=== PATIENT | male | born 1980 | race Two or more races ===

== ENCOUNTER 2023-10-03 12:06 | Emergency (ER) | payer MEDICAID, SELFPAY ==
[2023-10-03 12:07] VITALS: BP 153/100; PULSE 98; RESP 18; TEMP 36; O2SAT 100; BMI 29.7
--- NOTE | 2023-10-03 12:28 | CT_ITS ---
STUDY: CT ABDOMEN AND PELVIS WITH CONTRAST REASON FOR EXAM: Male, 43 years old. Rectal pain -- IV PO Contrast RADIATION DOSAGE (If Supplied By Facility): CTDIvol = ( 17.08 ) mGy, DLP = ( 1160.06 ) mGycm TECHNIQUE: Oral and amp; IV Gastrografin and amp; 100mL Isovue-370 was administered. Transaxial images were obtained from the dome of the diaphragm to the symphysis pubis in the arterial, nephrographic and excretory phases. Multiplanar coronal and sagittal images were reformatted. Individualized Dose Optimization Techniques Were Used For This CT. COMPARISON: No relevant prior comparison study available FINDINGS: The visualized lung bases are unremarkable. The visualized portions of the heart are within normal limits. Normal liver. Normal gallbladder and extrahepatic biliary system. Normal spleen. Normal pancreas. Normal bilateral adrenal glands. Normal visualized stomach. Normal in caliber small bowel loops. No evidence of acute diverticulitis. The appendix is visualized and appears normal. Normal abdominal aorta. No retroperitoneal adenopathy. Normal right kidney. Normal left kidney. Normal urinary bladder. No pelvic mass. Normal abdominal wall. Normal osseous structures. CT/Abdomen/Pelvis WITH Contrast IMPRESSION: No focal acute inflammatory process. Electronically Signed: Juvenal Browning MD at 15:01 EDT ,
--- NOTE | 2023-10-03 12:29 | EX.ED.DYSGE1 ---
HPI History of Present Illness Chief Complaint: Other, Pain/Inj Detail of Chief Complaint: Rectal pain Informant: patient Onset/Context/Timing Onset: Weeks Narrative Narrative: Patient presents with 3-week history of rectal pain. He reports history of hemorrhoid surgery in the [facility] in 2016. He moved to the last year and has had a couple bouts of rectal pain that usually resolved with use of suppositories. About 3 weeks ago he developed rectal pain again. He was placed on hydrocortisone cream. He states his PCP did an exam and found a fissure. He is currently on a lidocaine cream but symptoms not improving and the pain was worse this morning so he presented to the emergency room. He states stool is soft and he is currently taking a laxative. He does not have a lot of pain with the bowel movement itself. No fever or chills. PFSH PFSH Medical History no medical history no medical history Home Medications Hydrocortisone 2.5%/lidocaine 5% suppository (cmpd) #10 ea 10/03/23 [Rx Last Taken Unknown] Allergy/AdvReac Type Severity Reaction Status Date / Time No Known Allergies Allergy Verified 10/03/23 12:06 Surgical History H/O hemorrhoidectomy H/O hernia repair Social History Smoking Status: Never smoker ROS ROS ED Constitutional Constitutional ED: Denies chills or fever(s) Eyes Eyes: Denies discharge from eye(s) ENT ENT ED: Denies discharge from eye(s), rhinorrhea or sore throat Cardiovascular Cardiovascular: Denies chest pain Respiratory/Chest Respiratory/Chest: Denies cough or dyspnea Gastrointestinal Gastrointestinal: Reports other Details: Rectal pain ; Denies abdominal pain, nausea or vomiting Genitourinary Genitourinary ED: Denies dysuria Musculoskeletal Musculoskeletal: Denies back pain or extremity pain Integumentary Denies Abrasions or rash Neurologic Neurologic: Denies headache(s) or weakness Psychiatric Psychiatric: Denies anxiety or depression Allergic/Immunologic Allergic/Immunologic ED: Denies lip swelling or urticaria EXAM Physical Exam Const Vital Signs: 10/03/23 12:07 10/03/23 13:06 Temperature 96.8 F L Temperature Source Temporal Pulse Rate 98 Respiratory Rate 18 Respiratory Effort Normal Respiratory Pattern Normal Blood Pressure 153/100 H Blood Pressure Mean 117 Pulse Ox 100 Oxygen Delivery Method Room Air Positive well nourished and well developed General Appearance ED: well developed HEENT Reports moist mucous membranes Eyes EOMs intact bilaterally Chest Wall inspection of chest normal and palpation of chest normal Resp normal respiratory effort and clear to auscultation bilaterally Cardio regular rate and regular rhythm GI non-tender Palpation: soft Extremity normal to inspection Neuro oriented x3 Psych mental status grossly normal Skin no rashes or lesions noted MDM MDM MDM Narrative Medical decision making narrative: IV line established. Patient given morphine and Zofran for pain. Labwork obtained to evaluate for leukocytosis, anemia, and electrolyte derangement. CT scan of the abdomen pelvis obtained to ensure no evidence of abscess or other acute abnormality causing his worsened symptoms. History & Record Review Discussion w/independent historian: Patient Lab Data Attestation: I reviewed the patient's lab results. Labs: Laboratory Results - last 24 hr 10/03/23 12:40 WBC 8.2 RBC 4.93 Hgb 14.6 Hct 43.1 MCV 87.4 MCH 29.6 MCHC 33.9 RDW Std Deviation 39.8 RDW Coeff of Reggie 12.5 Plt Count 210 MPV 9.5 Immature Gran % (Auto) 0.100 Neut % (Auto) 67.5 Lymph % (Auto) 27.0 [place] % (Auto) 5.0 Eos % (Auto) 0.2 Baso % (Auto) 0.2 Absolute Neuts (auto) 5.5 Absolute Lymphs (auto) 2.20 Nucleated RBC % 0 Sodium 139 Potassium 3.7 Chloride 105 Carbon Dioxide 27.0 Anion Gap 7 BUN 14 Creatinine 1.03 Estim Creat Clear Calc 105.30 Est GFR (MDRD) Af Amer 100 Est GFR (MDRD) Non-Af 83 BUN/Creatinine Ratio 13.6 Glucose 101 Calcium 9.5 Radiography Diagnostic Testing: Clinical Impression(s) from Imaging Studies Abdomen/Pelvis CT 10/03/23 12:28 IMPRESSION: No focal acute inflammatory process. Electronically Signed: Juvenal Browning MD at 15:01 EDT , Treatment and Re-Evaluation :: CBC was normal white count 8.2 with a hemoglobin of 14.6. Chemistry studies unremarkable. CT scan with p.o. and IV contrast reveals no focal acute inflammatory process. Test results are discussed with the patient. He states his primary care physician has done rectal exams in the office and found a fissure that is deep. He states he has so much pain that he was referred to surgery for an exam under anesthesia and is currently scheduled for colonoscopy on the which was to be done under anesthesia as well. Patient has reportedly done well with suppositories containing hydrocortisone and lidocaine in the past but is only been given creams with this round. I will write him a prescription for the suppositories as this may go deeper and get to the affected area better. I will also refer him to local surgery to see if he can be seen quicker. Patient is comfortable with this plan. I did encourage him to take ibuprofen regularly to help with inflammation and pain but advised that I did not want to write him narcotics as this would make him more constipated and worsen his overall problem. Discharge Plan Triage Chief Complaint: Other, Pain/Inj ED Provider: Maru Vizcarra Dx/Rx/DC Orders Clinical Impression: Pain in rectum, Fissure in ano Instructions: ED Understanding Anal Fissures, Taking a Sitz Bath Prescriptions: New (DME) Hydrocortisone 2.5%/lidocaine 5% suppository (cmpd) Suppository See Rx Instructions .Route Qty: 10 0RF Rx Instructions: 1 supp rectally TID prn rectal pain Primary Care Provider: Adolfo Rausch Referrals: Javan Kinsey MD [Med Staff - Active Staff] - As soon as possible NOT,DEFINED [Non-Staff] - Disposition Disposition: Home, Self Care
[2023-10-03 12:49] LABS: Absolute Neutrophil Count 5.5 X10^3/uL (2.0-7.7); Basophil# 0.02 X10^3/uL; Basophil% 0.2 % (0-1); Eosinophil# 0.02 X10^3/uL; Eosinophils% 0.2 % (0-5); Hematocrit 43.1 % (40-54); Hemoglobin 14.6 g/dL (13.0-16.5); Mean Corp Hgb Conc 33.9 g/dL (32-36); Mean Corpuscular Hgb 29.6 pg (27.0-32.0); Mean Corpuscular Volume 87.4 fL (80-94); Mean Platelet Vol. 9.5 fl (6.2-12.0); Monocyte# 0.41 X10^3/uL; NRBC Flagged by Analyzer 0 % (0-5); Neutrophil # 5.49 X10^3/uL (2.7-7.7); Neutrophil % 67.5 % (47-70); Platelet Count 210 K/mm3 (150-450); RBC Distribution Width CV 12.5 % (11.6-14.6); RBC Distribution Width SD 39.8 fl (35.1-43.9); Red Blood Count 4.93 M/mm3 (4.6-6.2); White Blood Count 8.2 K/mm3 (4.4-11.0)
[2023-10-03] MEDS: Morphine 4 MG/ML Syringe IV (12:49)
[2023-10-03] MEDS: Ondansetron 4 MG/2 ML Vial IV (12:49)
[2023-10-03] MEDS: 0.9% Normal Saline (1000mL) 1,000 ML 150 ML IV (12:51)
[2023-10-03 13:14] LABS: Anion Gap 7 (5-15); BUN 14 mg/dL (7-18); BUN/Creat Ratio 13.6 RATIO (10-20); Calcium,Total 9.5 mg/dL (8.5-10.1); Chloride 105 mmol/L (98-107); Creatinine, Serum 1.03 mg/dL (0.70-1.30); EST Glomerular Filtration Rate 83 mL/min (>60); Est Glom Filt Rate - Afr Amer 100 mL/min (>60); Glucose 101 mg/dL (74-106); Potassium 3.7 mmol/L (3.5-5.1); Sodium Level 139 mmol/L (136-145)
[2023-10-03 15:34] VITALS: BP 140/85; PULSE 85; RESP 18; O2SAT 98
== END 2023-10-03 15:38 | disposition home or self-care (01) ==
PROVIDERS: Emergency Provider Emergency Medicine; PCP Internal Medicine; Visit Provider Emergency Medicine
DX: K60.2 Anal fissure, unspecified (principal); K62.89 Other specified diseases of anus and rectum
CPT/HCPCS: 74177; 80048; 85025; 96361; 96374; 96375; 99283; J7030; Q9967; A4216; J2405

== ENCOUNTER 2023-10-05 13:16 | Emergency (ER) | payer MEDICAID, SELFPAY ==
[2023-10-05 13:17] VITALS: BP 150/86; PULSE 103; RESP 16; TEMP 36.1; O2SAT 100; BMI 31.3
--- NOTE | 2023-10-05 18:26 | EDS_ITS ---
HPI <MAURA Tomlin - Last Filed: 10/05/23 20:53> History of Present Illness Chief Complaint: Other, Pain/Inj Narrative Narrative: Patient presenting today due to an anal fissure that he has had for about the past month. He was initially diagnosed by his PCP. He has been given lidocaine ointments, nitroglycerin ointment, and suppositories. He reports that he did struggle with constipation off and on but is now taking stool softeners and has not had any issues with constipation recently. He reports that the fissure has worsened since being seen here last on 10/03/2023. He is unable to insert the suppositories due to having so much rectal pain. He is requesting that he be seen by general surgery. He denies any fever or chills. PFSH <MAURA Tomlin - Last Filed: 10/05/23 20:53> PFS Home Medications Hydrocortisone 2.5%/lidocaine 5% suppository (cmpd) (hydrocortisone 2.5%/lidocaine 5% suppository (compound)) #30 ea 10/03/23 [Rx Last Taken Unknown] belladonna alkaloids-opium 16.2 mg-30 mg rectal suppository 1 supp NH TID PRN pain 3 days #12 ea 10/05/23 [Rx Last Taken Unknown] hydrocortisone 2.5 % topical cream with perineal applicator 1 applic topical Q12H 10/05/23 [History Last Taken Unknown] lidocaine 5 % topical ointment 1 applic topical DAILY 10/05/23 [History Last Taken Unknown] Allergy/AdvReac Type Severity Reaction Status Date / Time No Known Allergies Allergy Verified 10/05/23 13:19 Surgical History H/O hemorrhoidectomy H/O hernia repair Social History household members: children Smoking Status: Never smoker ROS <MAURA Tomlin - Last Filed: 10/05/23 20:53> ROS ED Constitutional Constitutional ED: Denies chills or fever(s) Cardiovascular Cardiovascular: Denies chest pain Respiratory/Chest Respiratory/Chest: Denies cough or dyspnea Gastrointestinal Gastrointestinal: Denies abdominal pain, nausea or vomiting Genitourinary Genitourinary ED: Denies dysuria, hematuria or urinary urgency Musculoskeletal Musculoskeletal: Denies arthralgias or myalgias Integumentary Denies rash Neurologic Neurologic: Denies weakness EXAM <MAURA Tomlin - Last Filed: 10/05/23 20:53> Physical Exam Const Vital Signs: 10/05/23 13:17 10/05/23 17:48 10/05/23 20:58 Temperature 97.0 F L Temperature Source Temporal Pulse Rate 103 H Respiratory Rate 16 14 Respiratory Effort Normal Non-Labored Respiratory Pattern Normal Blood Pressure 150/86 H Blood Pressure Mean 107 Pulse Ox 100 Oxygen Delivery Method Room Air Positive well nourished, well developed and no apparent distress General Appearance ED: well developed HEENT Reports normocephalic and head/scalp atraumatic Mouth ED: Yes moist mucous membranes normal Eyes PERRL and EOMs intact bilaterally Neck full ROM and supple Chest Wall inspection of chest normal Resp normal respiratory effort and clear to auscultation bilaterally Cardio regular rate and regular rhythm GI soft to palpation, non-tender, non-distended and no masses Back/Spine normal ROM and normal to inspection Extremity normal to inspection and full ROM Neuro oriented x3, CN's II-XII intact bilaterally, moves all extremities, no focal motor deficits and no sensory deficits noted Sensorium / Orientation: awake and alert Psych mental status grossly normal and thought process normal Skin no rashes or lesions noted and no wounds <Dr. Kye Leal MD - Last Filed: 10/05/23 23:05> Physical Exam Const Vital Signs: 10/05/23 13:17 10/05/23 17:48 10/05/23 20:58 Temperature 97.0 F L Temperature Source Temporal Pulse Rate 103 H Respiratory Rate 16 14 Respiratory Effort Normal Non-Labored Respiratory Pattern Normal Blood Pressure 150/86 H Blood Pressure Mean 107 Pulse Ox 100 Oxygen Delivery Method Room Air MDM <MAURA Tomlin - Last Filed: 10/05/23 20:53> [facility] Narrative Medical decision making narrative: Patient presenting with rectal pain due to an anal fissure that he has had for the past month. His pain is getting more severe. He is taking stool softeners but even with soft stool he is in pain. He is having a hard time inserting the suppositories he was prescribed on Thursday due to the pain. He did have a work-up on Thursday including labs and a CT scan of the abdomen and pelvis, all of this was unremarkable. 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 He will be given a prescription for BNO suppositories. He is to follow-up with his PCP. He will be discharged home in stable condition and is comfortable with plan. I have personally performed a face to face assessment of the patient and have reviewed the MICHAEL Note. I performed a substantive portion of the visit including all aspects of the following. My fox findings include: History: Complains of rectal pain. He evidently was diagnosed by his physician with a rectal fissure months ago. He has been having rectal pain off and on for many months. He had a colonoscopy scheduled for the that is now moved up to the . His primary physician up in [place] at [facility] has him scheduled to see a surgeon for examination under anesthesia b ut this appointment is not yet set. He does not know what surgeon this is with or who it is or when it may be. He was in here 2 days ago with pain. He had a complete evaluation including blood work and a CAT scan to rule out other causes. He states he still gets pain. But what he describes to me almost sounds like rectal spasm that occurs. No fevers no chills and no bleeding. He does not insert anything in his rectum other than the rectal suppositories and those are painful. If he moves his bowels he has more pain. He is on laxatives and has soft stools and it still causes pain. Exam: Abdomen is benign. Rectal exam shows no mass. No sign of infection. There is small skin tag. I do not see a definite fissure but examination is painful. Overall the exam looks relatively normal. Medical Decision Making: I had extensive discussions with the patient approaching 30 minutes. He then asked me to discuss this with a friend of his who arrived part way through this. I explained that there is not any acute solution I can give him to this. He has had an extensive work-up within 48 hours or so. This does not need to be repeated. I will write for some BNO suppositories if available. If not we will write a short course of pain meds. However I explained to the patient that taking narcotic pain meds may give hours of release but because days of problems. He needs to take his stool softeners and plenty of fluids to prevent constipation with these. He will contact his physician for close follow-up with his referred specialist. <Dr. Kye Leal MD - Last Filed: 10/05/23 23:05> [facility] Narrative Medical decision making narrative: I have personally performed a face to face assessment of the patient and have reviewed the MICHAEL Note. I performed a substantive portion of the visit including all aspects of the following. My fox findings include: History: Complains of rectal pain. He evidently was diagnosed by his physician with a rectal fissure months ago. He has been having rectal pain off and on for many months. He had a colonoscopy scheduled for the that is now moved up to the . His primary physician up in [place] at [facility] has him scheduled to see a surgeon for examination under anesthesia but this appointment is not yet set. He does not know what surgeon this is with or who it is or when it may be. He was in here 2 days ago with pain. He had a complete evaluation including blood work and a CAT scan to rule out other causes. He states he still gets pain. But what he describes to me almost sounds like rectal spasm that occurs. No fevers no chills and no bleeding. He does not insert anything in his rectum other than the rectal suppositories and those are painful. If he moves his bowels he has more pain. He is on laxatives and has soft stools and it still causes pain. Exam: Abdomen is benign. Rectal exam shows no mass. No sign of infection. There is small skin tag. I do not see a definite fissure but examination is painful. Overall the exam looks relatively normal. Medical Decision Making: I had extensive discussions with the patient approaching 30 minutes. He then asked me to discuss this with a friend of his who arrived part way through this. I explained that there is not any acute solution I can give him to this. He has had an extensive work-up within 48 hours or so. This does not need to be repeated. I will write for some BNO suppositories if available. If not we will write a short course of pain meds. However I explained to the patient that taking narcotic pain meds may give hours of release but because days of problems. He needs to take his stool softeners and plenty of fluids to prevent constipation with these. He will contact his physician for close follow-up with his referred specialist. Discharge Plan Triage Chief Complaint: Other, Pain/Inj ED Midlevel Provider: Sally Shay ED Provider: Kye Leal Dx/Rx/DC Orders Clinical Impression: Pain in rectum, Fissure in ano, Proctalgia fugax Instructions: ED Understanding Anal Fissures Prescriptions: New belladonna alkaloids-opium 16.2-30 mg suppository 1 supp NH TID PRN (Reason: pain) 3 Days Qty: 12 0RF No Action hydrocortisone 2.5 % cream with perineal applicator 1 applic topical Q12H Patient Comments: Insert 1 application rectally twice daily. lidocaine 5 % ointment 1 applic topical DAILY (DME) hydrocortisone 2.5%/lidocaine 5% suppository (compound) Suppository See Rx Instructions .Route Qty: 30 0RF Rx Instructions: 1 suppository NH TID prn rectal pain Stand Alone Forms: ED Work / School Excuse Primary Care Provider: Adolfo Rausch Referrals: Adolfo Rausch MD [Primary Care Provider] - Activity Restrictions/Additional Instructions: Follow-up with your physician and specialist in the [facility] [place] as scheduled. Disposition Disposition: Home, Self Care Discharge Date/Time: 10/05/23 20:59
[2023-10-05 20:58] VITALS: RESP 14
== END 2023-10-05 20:59 | disposition home or self-care (01) ==
PROVIDERS: Emergency Provider Emergency Medicine; PCP Internal Medicine; Visit Provider Emergency Medicine
DX: K62.89 Other specified diseases of anus and rectum (principal); K60.2 Anal fissure, unspecified; K59.4 Anal spasm
CPT/HCPCS: 99282

== ENCOUNTER 2024-05-23 13:25 | Emergency (ER) | payer MEDICAID, SELFPAY ==
[2024-05-23] VITALS (13 sets, daily range): BP systolic 131–164; BP diastolic 68–108; PULSE 62–86; RESP 12–22; TEMP 36.7–36.9; O2SAT 96–100; BMI 31.1
--- NOTE | 2024-05-23 14:12 | EKG12_ITS ---
Test Reason : SOB Blood Pressure : / mmHG Vent. Rate : 070 BPM Atrial Rate : 070 BPM P-R Int : 170 ms QRS Dur : 090 ms QT Int : 362 ms P-R-T Axes : 068 079 052 degrees QTc Int : 390 ms Normal sinus rhythm Normal ECG Confirmed by Mehul Maza ([id number]), graphic editor DAVID HARRISON ([id number]) on 05/25/2024 11:31:38 AM Referred By: Confirmed By:Mehul Maza
--- NOTE | 2024-05-23 14:14 | MRI_ITS ---
STUDY: MRI BRAIN WITHOUT CONTRAST REASON FOR EXAM: Male, 43 years old. Vertigo, horizontal nystagmus, to the right, difficulty ambulating TECHNIQUE: Multiplanar multisequence imaging of the brain was performed without the administration of intravenous contrast. COMPARISON: None. FINDINGS: The ventricles, cisterns, and sulci are within normal limits for patients age. There is no restricted diffusion to suggest acute ischemia or infarction. No succeptibility artifict to suggest intracranial hemorrhage or mineralization. Major intracranial signal voids are preserved. There is no midline shift, mass effect, or extra axial fluid collections are seen. No CP angle or IAC mass is seen. The orbits are unremarkable. The sella turcica and craniovertebral junction are within normal limits. The visualized paranasal sinuses are clear. The mastoid air cells are clear. MRI/Brain without Contrast IMPRESSION: No intracranial hemorrhage, acute infarct, or space occupying lesion seen on this noncontrast MRI of the brain. Electronically Signed: Igor Gomez MD at 16:41 EDT ,
--- NOTE | 2024-05-23 14:15 | EDS_ITS ---
HPI History of Present Illness Chief Complaint: Dizziness Detail of Chief Complaint: Dizziness which she describes as head spinning Informant: patient Onset/Context/Timing Onset: Yesterday, Weeks and Month(s) Context: Sudden Onset Timing: Intermittent and Lasts (Varies 30 to 60 seconds) Quality and Location: Positive for Difficulty with Ambulation; Negative for Right Facial Droop, Left Facial Droop, Right Face Paresthesia, Left Face Parasthesia, Right Arm Parasthesia, Left Arm Parasthesia, Right Leg Parasthesia, Left Leg Parasthesia, Right Arm Weakness, Left Arm Weakness, Right Leg Weakness, Left Leg Weakness, Slurred Speech, Expressive Aphasia or Receptive Aphasia Current Severity: Gone Maximum Severity: Severe Worsened by: Nothing, patient body may have been fatigued yesterday. Relieved by: Nothing Associated Symptoms Associated Symptoms: Positive for Nausea; Negative for Headache, Vomiting or Chest Pain Narrative Narrative: Patient is a 43-year-old male. He contacted his physician's nurse. Based on his symptoms I recommend he come to the emergency department. Yesterday while standing he developed a swimming sensation in his head. Which he describes as a swirling sensation and had to go to the ground because he felt unsafe. He denied double vision, blurred vision loss of vision or change in vision when this occurred. He has had 5 episodes in the last 2 months. He thought he may have been fatigued. He states he was in his apartment the whole day and was not out in the hot weather. He denied headache. He denies giron ears or decreased hearing. He denies trouble with speech or swallowing. He denied paresthesia, anesthesia or motor weakness upper or lower extremity. He has borderline hypertension. He is a smoker of 1/4 pack/day. He states he is trying to quit because he has a son that lives with him. He denies abdominal pain, he denies vomiting or diarrhea. He denies black or maroon-colored stool. Prior similar symptoms: No Recent Illness/Hospitalization: No PFSH PFS Medical History no medical history no medical history Home Medications ?Medication ?Instructions ?Recorded ?Last Taken ?Type Hydrocortisone 2.5%/lidocaine 5% #30 ea 10/03/23 Unknown Rx suppository (cmpd) (hydrocortisone 2.5%/lidocaine 5% suppository (compound)) sertraline 100 mg tablet 150 mg PO DAILY 05/23/24 Unknown History Allergy/AdvReac Type Severity Reaction Status Date / Time No Known Allergies Allergy Verified 05/23/24 13:25 Surgical History H/O hemorrhoidectomy H/O hernia repair Social History (Updated 05/23/24 @ 14:[address] Margarito Vega MD) household members: children Smoking Status: Light Smoker (<10/day) quit status: considering quitting substance use type: does not use ROS ROS ED Constitutional Constitutional ED: Denies chills, fever(s), subjective, sweats or weakness Eyes Eyes: Denies blurry vision, change in vision or diplopia ENT ENT ED: Denies ear pain, rhinorrhea or sore throat Cardiovascular Cardiovascular: Denies chest pain, palpitations or racing heartbeat Respiratory/Chest Respiratory/Chest: Denies cough, dyspnea or dyspnea on exertion Gastrointestinal Gastrointestinal: Reports nausea; Denies abdominal pain, diarrhea, melena or vomiting Genitourinary Genitourinary ED: Denies dysuria, hematuria or urinary frequency Musculoskeletal Musculoskeletal: Denies arthralgias, back pain, myalgias or neck pain Integumentary Denies rash Neurologic Neurologic: Reports weakness; Denies headache(s) or paresthesias Endocrine Endocrinology: Denies polydipsia, polyphagia or polyuria Hematologic/Lymphatic Hematologic/Lymphatic: Denies easy bleeding or easy bruising EXAM Physical Exam Const Vital Signs: 05/23/24 13:26 05/23/24 14:24 05/23/24 16:00 Temperature 98.1 F Temperature Source Temporal Pulse Rate 85 68 Pulse Rate [Lying] 74 Pulse Rate [Sitting (for 1 minute prior to obtaining)] 69 Pulse Rate [Standing (for 1 minute prior to obtaining)] 78 Respiratory Rate 14 17 Blood Pressure 143/86 H 149/85 H Blood Pressure [Lying] 131/68 H Blood Pressure [Sitting (for 1 minute prior to obtaining)] 139/108 H Blood Pressure [Standing (for 1 minute prior to obtaining)] 164/87 H Blood Pressure Mean 105 106 Blood Pressure Mean [Lying] 89 Blood Pressure Mean [Sitting (for 1 minute prior to obtaining)] 118 Blood Pressure Mean [Standing (for 1 minute prior to obtaining)] 112 Pulse Ox 96 100 Oxygen Delivery Method Room Air Room Air 05/23/24 16:08 05/23/24 16:15 05/23/24 16:30 Temperature Temperature Source Pulse Rate 65 65 66 Pulse Rate [Lying] Pulse Rate [Sitting (for 1 minute prior to obtaining)] Pulse Rate [Standing (for 1 minute prior to obtaining)] Respiratory Rate 17 15 14 Blood Pressure 149/85 H 143/96 H Blood Pressure [Lying] Blood Pressure [Sitting (for 1 minute prior to obtaining)] Blood Pressure [Standing (for 1 minute prior to obtaining)] Blood Pressure Mean 101 110 Blood Pressure Mean [Lying] Blood Pressure Mean [Sitting (for 1 minute prior to obtaining)] Blood Pressure Mean [Standing (for 1 minute prior to obtaining)] Pulse Ox 100 100 Oxygen Delivery Method 05/23/24 16:45 05/23/24 17:00 05/23/24 17:15 Temperature Temperature Source Pulse Rate 70 68 62 Pulse Rate [Lying] Pulse Rate [Sitting (for 1 minute prior to obtaining)] Pulse Rate [Standing (for 1 minute prior to obtaining)] Respiratory Rate 18 16 22 H Blood Pressure 151/101 H Blood Pressure [Lying] Blood Pressure [Sitting (for 1 minute prior to obtaining)] Blood Pressure [Standing (for 1 minute prior to obtaining)] Blood Pressure Mean 115 Blood Pressure Mean [Lying] Blood Pressure Mean [Sitting (for 1 minute prior to obtaining)] Blood Pressure Mean [Standing (for 1 minute prior to obtaining)] Pulse Ox 100 100 100 Oxygen Delivery Method Room Air 05/23/24 17:30 05/23/24 17:45 05/23/24 18:00 Temperature Temperature Source Pulse Rate 62 78 67 Pulse Rate [Lying] Pulse Rate [Sitting (for 1 minute prior to obtaining)] Pulse Rate [Standing (for 1 minute prior to obtaining)] Respiratory Rate 20 H 20 H 13 Blood Pressure 153/101 H 153/106 H Blood Pressure [Lying] Blood Pressure [Sitting (for 1 minute prior to obtaining)] Blood Pressure [Standing (for 1 minute prior to obtaining)] Blood Pressure Mean 116 121 Blood Pressure Mean [Lying] Blood Pressure Mean [Sitting (for 1 minute prior to obtaining)] Blood Pressure Mean [Standing (for 1 minute prior to obtaining)] Pulse Ox 100 100 100 Oxygen Delivery Method Room Air Room Air Positive well nourished and well developed General Appearance ED: well developed and NAD HEENT Reports TM's clear and dry mucous membranes atraumatic Tympanic Membrane ED: Yes TM's clear Mouth ED: Yes dry mucous membranes Mouth: dry mucous membranes Eyes PERRL and EOMs intact bilaterally Eyes Narrative: Patient blood pressure slightly elevated. Patient has horizontal nystagmus with fast component to the right. This is not necessarily with lateral gaze only. General Eye ED: Negative for pale conjunctiva or scleral icterus Neck no lymphadenopathy, supple and no JVD Neck Narrative: There is no carotid bruit right or left. Chest Wall inspection of chest normal and palpation of chest normal Resp normal respiratory effort and clear to auscultation bilaterally Cardio no murmurs Rate: regular rate Rhythm: regular rhythm Heart Sounds: S1 normal and S2 normal GI normal to inspection, nondistended, normoactive bowel sounds, soft to palpation, non-tender, non-distended and no masses Back/Spine Back/Spine Narrative: Inspection of the back is normal. Extremity normal to inspection General Extremety ED: Negative for edema or tenderness General Extremity: Negative for edema Neuro oriented x3, CN's II-XII intact bilaterally and no sensory deficits noted Neuro Narrative: DTR 2-3+ bicep, tricep, patella and ankle and there is no clonus or Babinski sign. There is no dysmetria. [id number] was normal. Patient had no truncal ataxia sitting up from a supine position. The eye askew test and hints test were both negative. [place]-Hallpike maneuver was negative. Romberg test with eyes open and closed was negative. [place] Coma Scale: document GCS findings Spontaneous Obeys Commands Oriented 15 Sensorium / Orientation: alert Psych mental status grossly normal Skin no wounds General Skin Exam: Negative for jaundice Lesions: no lesions Rashes: no rashes NIHSS NIHSS Initial: 1a Level of Consciousness: 0 1b LOC Questions (Score 2 if aphasic/stupor): 0 1c LOC Commands (Only score 1st attempt): 0 2 Best Gaze (If aphasic, use reflexive mvmts.): 0 3 Visual: 0 4 Facial Palsy: 0 5 Motor Arm Right (UN = amputation/fusion): 0 5 Motor Arm Left: 0 6 Motor Leg Right: 0 6 Motor Leg Left: 0 7 Limb ataxia (Only + if out of proportion): 0 8 Sensory (Aphasia/stupor=0 or 1, coma=2): 0 9 Best Language: 0 10 Dysarthria (mute, coma=2, intubated=UN): 0 11 Extinction and Inattention (only scored if +): 0 Total Score: 0 MDM MDM MDM Narrative Medical decision making narrative: Differential diagnosis is central versus peripheral vertigo and possibly orthostatic hypotension since patient clinically may be dehydrated with dry mucosa. Will obtain MRI since patient's had several symptoms over the past 1 to 2 months. Furthermore even concerned this may be central since she has horizontal nystagmus with fast component to the right. Will obtain basic blood work assessing renal function, electrolytes, H&H. Orthostatic vitals were ordered. If they are positive or patient is symptomatic we will treat with fluid bolus. Lab Data Attestation: I reviewed the patient's lab results. Lab results narrative: CBC is normal. BMP is normal. Labs: Laboratory Results - last 24 hr 05/23/24 13:45 WBC 6.4 RBC 4.66 Hgb 13.4 Hct 41.0 MCV 88.0 MCH 28.8 MCHC 32.7 RDW Std Deviation 40.5 RDW Coeff of Reggie 12.6 Plt Count 200 MPV 10.0 Immature Gran % (Auto) 0.300 Neut % (Auto) 59.6 Lymph % (Auto) 34.3 [place] % (Auto) 4.4 Eos % (Auto) 0.9 Baso % (Auto) 0.5 Absolute Neuts (auto) 3.8 Absolute Lymphs (auto) 2.19 Nucleated RBC % 0 Sodium 138 Potassium 3.8 Chloride 108 H Carbon Dioxide 25.0 Anion Gap 5 BUN 12 Creatinine 1.09 Estim Creat Clear Calc 104.66 Est GFR (MDRD) Af Amer 94 Est GFR (MDRD) Non-Af 77 BUN/Creatinine Ratio 11.0 Glucose 119 H Calcium 9.0 Radiography Diagnostic Testing: Clinical Impression(s) from Imaging Studies Brain MRI 05/23/24 14:14 IMPRESSION: No intracranial hemorrhage, acute infarct, or space occupying lesion seen on this noncontrast MRI of the brain. Electronically Signed: Igor Gomez MD at 16:41 EDT , EKG Initial EKG: Attestation: I personally reviewed and interpreted this EKG as follows: Interpretation: Sinus Rhythm (Normal sinus rhythm rate of 70. EKG is normal. DE interval is 170 msDuration 90 ms. QT duration 162 ms. Stephens is normal.) Treatment and Re-Evaluation Narrative: Patient is symptom-free. With a normal MRI he will be discharged to home. Suspect this is atypical presentation for benign paroxysmal positional vertigo. Discharge Plan Triage Chief Complaint: Dizziness ED Provider: Margarito Vega Dx/Rx/DC Orders Clinical Impression: Vertigo, Elevated blood pressure reading without diagnosis of hypertension, Tobacco use Instructions: ED Hypertension, To Be Confirmed, ED Vertigo, Unspecified Prescriptions: No Action (DME) hydrocortisone 2.5%/lidocaine 5% suppository (compound) Suppository See Rx Instructions .Route Qty: 30 0RF Rx Instructions: 1 suppository DE TID prn rectal pain sertraline 100 mg tablet 150 mg PO DAILY Primary Care Provider: Adolfo Rausch Referrals: Adolfo Rausch MD [Primary Care Provider] - Keep Romi appointment Print Language: Serbian Disposition Disposition: Home, Self Care
[2024-05-23 14:21] LABS: Absolute Lymphocyte Count 2.19 X10^3/uL (0.83-4.51); Absolute Neutrophil Count 3.8 X10^3/uL (2.0-7.7); Basophil# 0.03 X10^3/uL; Basophil% 0.5 % (0-1); Eosinophil# 0.06 X10^3/uL; Eosinophils% 0.9 % (0-5); Hemoglobin 13.4 g/dL (13.0-16.5); Lymphocyte # 2.19 X10^3/ul (0.83-4.51); Lymphocyte % 34.3 % (19-41); Mean Corp Hgb Conc 32.7 g/dL (32-36); Mean Corpuscular Hgb 28.8 pg (27.0-32.0); Monocyte# 0.28 X10^3/uL; Monocyte% 4.4 % (0-10); NRBC Flagged by Analyzer 0 % (0-5); Neutrophil # 3.81 X10^3/uL (2.7-7.7); Neutrophil % 59.6 % (47-70); Platelet Count 200 K/mm3 (150-450); RBC Distribution Width CV 12.6 % (11.6-14.6); RBC Distribution Width SD 40.5 fl (35.1-43.9); Red Blood Count 4.66 M/mm3 (4.6-6.2); White Blood Count 6.4 K/mm3 (4.4-11.0)
[2024-05-23 14:34] LABS: Anion Gap 5 (5-15); BUN 12 mg/dL (7-18); Chloride 108 mmol/L (98-107); Creatinine, Serum 1.09 mg/dL (0.70-1.30); EST Glomerular Filtration Rate 77 mL/min (>60); Est Glom Filt Rate - Afr Amer 94 mL/min (>60); Estimated Creatinine Clearance 104.66 ml/min; Glucose 119 mg/dL (74-106); Potassium 3.8 mmol/L (3.5-5.1); Sodium Level 138 mmol/L (136-145)
== END 2024-05-23 20:00 | disposition home or self-care (01) ==
PROVIDERS: Emergency Provider Emergency Medicine; PCP Internal Medicine; Visit Provider Emergency Medicine
DX: R42 Dizziness and giddiness (principal); F17.200 Nicotine dependence, unspecified, uncomplicated; R03.0 Elevated blood-pressure reading, without diagnosis of hypertension
CPT/HCPCS: 70551; 80048; 85025; 93005; 99285; A4216

== ENCOUNTER 2025-07-05 16:42 | Emergency (ER) | payer MEDICAID, SELFPAY ==
[2025-07-05 16:42] VITALS: BP 136/93; PULSE 97; RESP 18; TEMP 37.4; O2SAT 100; BMI 32.1
--- NOTE | 2025-07-05 16:55 | RAD_ITS ---
PROCEDURE: CHEST PA AND LATERAL 07/05/2025 REASON FOR EXAM: PRODUCTIVE COUGH, WHEEZING RIGHT GREATER THAN LEFT TECHNIQUE: CHEST PA AND LATERAL COMPARISON: None. FINDINGS: Lungs/Pleura: Clear. No pneumothorax or pleural effusion. There is peribronchial cuffing suggestive of small airways disease, such as bronchitis or asthma. Heart/Mediastinum: Normal in size. Bones/Soft tissues: Unremarkable. RAD/Chest PA and Lateral IMPRESSION: No airspace consolidation or pleural effusion. Peribronchial cuffing suggestive of small airways disease, such as bronchitis o r asthma. Reading Location: [id number]
--- NOTE | 2025-07-05 16:55 | EX.ED.DYSGE1 ---
HPI History of Present Illness Chief Complaint: General Illness Detail of Chief Complaint: Respiratory symptoms with productive cough that started 1 week ago Informant: patient Onset/Context/Timing Onset: Weeks (1 week) Context: Sudden Onset Timing: Continuous Quality: Rhinorrhea, productive cough of colored sputum, wheezing, generalized weakn Location: Upper respiratory predominantly Current Severity: Mild Maximum Severity: Moderate Worsened by: Nothing specific Relieved by: Nothing Associated Symptoms Associated Symptoms: Generalized weakness Narrative Narrative: Patient is a 44-year-old male. He is a smoker 1 to 2 cigarettes/day. He has no history of asthma or COPD. Illness started 1 week ago. He denies fever. He denies headache, visual, ocular auditory symptoms. He does endorse mild congestion. He has had no change in voice. He has a productive cough of colored sputum. He has also been wheezing. He denies abdominal pain, nausea, vomiting or diarrhea. He denies myalgias arthralgias. He had a negative COVID test. [facility] He was prescribed doxycycline and albuterol metered-dose inhaler. The practitioner who saw recommended he come to the ER for further testing. Prior similar symptoms: Yes Recent Illness/Hospitalization: No [facility] Medical History (Updated 07/05/25 @ 17:[address] Margarito Vega MD) Constipation Depression Home Medications ?Medication ?Instructions ?Recorded ?Last Taken ?Type Hydrocortisone 2.5%/lidocaine 5% #30 ea 10/03/23 Unknown Rx suppository (cmpd) (hydrocortisone 2.5%/lidocaine 5% suppository (compound)) sertraline 100 mg tablet 150 mg PO DAILY 05/23/24 Unknown History Allergy/AdvReac Type Severity Reaction Status Date / Time No Known Allergies Allergy Verified 07/05/25 16:42 Surgical History H/O hemorrhoidectomy H/O hernia repair Social History household members: children Smoking Status: Light Smoker (<10/day) quit status: considering quitting substance use type: does not use ROS ROS ED Constitutional Constitutional ED: Denies chills, fever(s), subjective or sweats Eyes Eyes: Denies blurry vision, change in vision or diplopia ENT ENT ED: Denies ear pain, rhinorrhea or sore throat Cardiovascular Cardiovascular: Denies chest pain, orthopnea, palpitations, paroxysmal nocturnal dyspnea or racing heartbeat Respiratory/Chest Respiratory/Chest: Reports cough, dyspnea and sputum; Denies dyspnea on exertion, orthopnea or paroxysmal nocturnal dyspnea Gastrointestinal Gastrointestinal: Denies abdominal pain, nausea or vomiting Musculoskeletal Musculoskeletal: Denies arthralgias or myalgias Integumentary Denies rash Neurologic Neurologic: Denies headache(s) or paresthesias Hematologic/Lymphatic Hematologic/Lymphatic: Reports systems reviewed and no addt'l complaints, except as documented EXAM Physical Exam Const Vital Signs: 07/05/25 16:42 07/05/25 16:52 Temperature 99.4 F H Temperature Source Oral Pulse Rate 97 Respiratory Rate 18 Respiratory Effort Short of Breath Blood Pressure 136/93 H Blood Pressure Mean 107 Pulse Ox 100 Oxygen Delivery Method Room Air Positive well nourished and well developed General Appearance ED: well developed and NAD; Negative for cyanotic, diaphoretic or pallor HEENT Reports moist mucous membranes HEENT Narrative: Head is atraumatic and normocephalic. Ears normal. TMs normal. Posterior pharynx is normal. Uvula is midline. There is no deviation of tongue or protrusion. Nares patent. Eyes PERRL and EOMs intact bilaterally General Eye ED: Negative for pale conjunctiva or scleral icterus Neck no lymphadenopathy, supple and no JVD Chest Wall inspection of chest normal and palpation of chest normal Resp normal respiratory effort and No clear to auscultation bilaterally Auscultation: wheezes expiratory wheezes (Right greater than left. Egophony right lower lobe posteriorly) Cardio regular rate, regular rhythm, S1 normal heart sound, S2 normal heart sound and no murmurs GI normal to inspection, nondistended, normoactive bowel sounds, non-tender, non-distended and no masses Extremity normal to inspection Neuro oriented x3 and CN's II-XII intact bilaterally Sensorium / Orientation: alert Psych mental status grossly normal Skin no rashes or lesions noted, no wounds and skin turgor normal General Skin Exam: Negative for jaundice or pallor MDM MDM MDM Narrative Medical decision making narrative: Patient's vital signs reveal slight elevation of blood pressure and temperature. He may have a pneumonia right lower lobe. Clinically he has pneumonia. Patient is never been instructed how to use inhaler. Will instruct him how to use the inhaler prior to him going home. Chest x-ray was obtained to determine if he does have pneumonia and if unilateral versus bilateral. My opinion laboratory tests are not indicated. There is no concern for PE, pneumothorax, cardiac ischemia etc. Radiography Chest X-Ray - ED: 2 View, Read by ED Physician, Normal, Heart, Lungs, Mediastinum, Bony Structures and No Acute Disease Treatment and Re-Evaluation :: Clinically patient is pneumonia right lower lobe. Treatment that was ordered by [facility] is appropriate. Will make sure patient knows how to use the inhaler. Discharge Plan Triage Chief Complaint: General Illness ED Provider: Margarito Vega Dx/Rx/DC Orders Clinical Impression: Community acquired pneumonia, Acute bronchospasm, Elevated blood-pressure reading without diagnosis of hypertension Instructions: ED MDI Use Spacer or None, ED Pneumonia (Adult) Prescriptions: No Action (DME) hydrocortisone 2.5%/lidocaine 5% suppository (compound) Suppository See Rx Instructions .Route Qty: 30 0RF Rx Instructions: 1 suppository OR TID prn rectal pain sertraline 100 mg tablet 150 mg PO DAILY Primary Care Provider: Adolfo Rausch Referrals: Adolfo Rausch MD [Primary Care Provider] - 1 Week if not improving Print Language: Dominican Disposition Disposition: Home, Self Care
[2025-07-05 17:26] VITALS: BP 141/86; PULSE 78; RESP 18; TEMP 37.1; O2SAT 99
== END 2025-07-05 17:31 | disposition home or self-care (01) ==
LOC: ED 17:14
PROVIDERS: Emergency Provider Emergency Medicine; PCP Internal Medicine; Visit Provider Emergency Medicine
DX: J18.9 Pneumonia, unspecified organism (principal); J98.01 Acute bronchospasm; R03.0 Elevated blood-pressure reading, without diagnosis of hypertension; F17.210 Nicotine dependence, cigarettes, uncomplicated
CPT/HCPCS: 71046; 99282

== ENCOUNTER 2025-10-02 19:35 | Emergency (ER) | payer OTHER, MEDICAID, SELFPAY ==
[2025-10-02 19:35] VITALS: BP 128/98; PULSE 104; RESP 16; TEMP 36.8; O2SAT 100; BMI 32.6
--- NOTE | 2025-10-02 22:25 | EX.ED.DYSGE1 ---
HPI History of Present Illness Chief Complaint: Occup Expose Narrative Narrative: 45-year-old male who denies significant past medical history although he is a smoker thinks he may have been exposed to chemicals of a toilet bowl ladle cleaner which is causing him shortness of breath and cough. He states that he has been intermittently using toilet bowl ladle cleaner that is labeled as such over the last 3 weeks. He has had a dry cough on occasion. Tonight, he states that his boss sent him in for evaluation as he was having difficulty breathing and a dry cough. He has been using this ladle cleaner intermittently over the last 3 weeks, and last used it approximately [address] [facility] Medical History Constipation Depression Home Medications ?Medication ?Instructions ?Recorded ?Last Taken ?Type Hydrocortisone 2.5%/lidocaine 5% #30 ea 10/03/23 Unknown Rx suppository (cmpd) (hydrocortisone 2.5%/lidocaine 5% suppository (compound)) sertraline 100 mg tablet 150 mg PO DAILY 05/23/24 Unknown History albuterol sulfate 90 mcg/actuation inhalation 07/05/25 Unknown History aerosol inhaler albuterol sulfate 90 mcg/actuation inhalation 07/05/25 Unknown History aerosol inhaler doxycycline hyclate 100 mg tablet 100 mg PO BID 07/05/25 Unknown History doxycycline hyclate 100 mg tablet 100 mg PO BID 07/05/25 Unknown History Allergy/AdvReac Type Severity Reaction Status Date / Time No Known Allergies Allergy Verified 10/02/25 19:36 Family History no significant family his Surgical History H/O hemorrhoidectomy H/O hernia repair Social History household members: children Smoking Status: Light Smoker (<10/day) quit status: considering quitting substance use type: does not use ROS ROS ED ROS Narrative Review of systems is positive for dry cough, mild dyspnea. No fevers or chills. No nausea or vomiting. No exacerbating or alleviating factors. Intermittent chemical exposure over the last 3 weeks. Last used approximately 1 week ago. EXAM Physical Exam Narrative Exam Narrative: Afebrile. Vital signs noted. Nontoxic-appearing. Cardiovascular examination reveals a regular rate and rhythm. Lungs are clear to auscultation bilaterally. No wheezing or rhonchi. Abdomen is soft and nontender with positive bowel sounds. Neurological examination is nonfocal, nonlateralizing. Const Vital Signs: 10/02/25 19:35 10/02/25 22:19 10/02/25 22:55 Temperature 98.2 F Temperature Source Oral Pulse Rate 104 H 80 Respiratory Rate 16 16 Respiratory Effort Normal Non-Labored Respiratory Pattern Normal Blood Pressure 128/98 H Blood Pressure Mean 108 Pulse Ox 100 Oxygen Delivery Method Room Air 10/02/25 23:04 Temperature 98.2 F Temperature Source Pulse Rate 72 Respiratory Rate 16 Respiratory Effort Respiratory Pattern Blood Pressure 131/94 H Blood Pressure Mean 106 Pulse Ox 100 Oxygen Delivery Method MDM MDM MDM Narrative Medical decision making narrative: Differential diagnosis includes but not limited to chemical pneumonitis versus smoker's cough versus undiagnosed COPD versus asthma. Pulse ox is 100% on room air without evidence of hypoxia. He was reassured. I did order a chest x-ray in 2 views as well as an albuterol aerosolized treatment. It is difficult to directly correlate his dry cough and dyspnea directly to chemical exposure as he was coughing tonight, but states he has not used the chemicals since last week. Chest x-ray 2 views interpreted by myself independently shows no evidence of acute process, no pneumonia or pneumonitis. I reviewed the radiology report which confirms my independent interpretation. At this point in time, I do not feel that he requires admission or any laboratory work. He may have bronchospasm secondary to the chemical exposure. I reviewed the active contents in the main chemical is hydrogen chloride. He denies any consumption or skin exposure. I feel he can be discharged to follow-up with the [facility]. Additionally he states that they are going to get rid of that particular toilet bowl ladle cleaner, and use a different one. He also has masks that they wore during COVID that he can wear while using chemicals to avoid inhalation. I do not feel that he needs an albuterol inhaler as his pulse ox remains 100% on room air without evidence of hypoxia. Return instructions to the emergency department were reviewed. He was written to return to work tomorrow. Disposition is discharged home in stable condition. History & Record Review Discussion w/independent historian: Patient Radiography Diagnostic Testing: Clinical Impression(s) from Imaging Studies Chest X-Ray 10/02/25 22:27 IMPRESSION: No acute pulmonary disease. Reading Location: [id number] Discharge Plan Triage Chief Complaint: Occup Expose ED Provider: Cheo Haddad Dx/Rx/DC Orders Clinical Impression: Cough, Dyspnea, Toxic effect of chemical, Bronchospasm Instructions: ED Bronchospasm (Adult), ED Chemical Inhalation, ED Dyspnea Prescriptions: No Action (DME) hydrocortisone 2.5%/lidocaine 5% suppository (compound) Suppository See Rx Instructions .Route Qty: 30 0RF Rx Instructions: 1 suppository OR TID prn rectal pain sertraline 100 mg tablet 150 mg PO DAILY albuterol sulfate 90 mcg/actuation HFA aerosol inhaler inhalation doxycycline hyclate 100 mg tablet 100 mg PO BID albuterol sulfate 90 mcg/actuation HFA aerosol inhaler inhalation doxycycline hyclate 100 mg tablet 100 mg PO BID Primary Care Provider: Adolfo Rausch Referrals: [facility] [Provider Group] - As soon as possible Adolfo Rausch MD [Primary Care Provider, Internal Medicine] Activity Restrictions/Additional Instructions: Return with increased difficulty breathing, new or worsening symptoms. Stop smoking. Wear a mask at work when you are exposed to chemicals. Print Language: Afghan Disposition Disposition: Home, Self Care Discharge Date/Time: 10/02/25 23:21
--- NOTE | 2025-10-02 22:27 | RAD_ITS ---
PROCEDURE: RAD/Chest PA and Lateral
[2025-10-02] MEDS: Albuterol 2.5 MG/3 ML VIAL.NEB. INHALATION (22:52)
[2025-10-02 22:55] VITALS: PULSE 80; RESP 16
[2025-10-02 23:04] VITALS: BP 131/94; PULSE 72; RESP 16; TEMP 36.8; O2SAT 100
== END 2025-10-02 23:21 | disposition home or self-care (01) ==
PROVIDERS: Emergency Provider Emergency Medicine; PCP Internal Medicine; Visit Provider Emergency Medicine
DX: J98.01 Acute bronchospasm (principal); T57.8X1A Toxic effect of other specified inorganic substances, accidental (unintentional), initial encounter; X58.XXXA Exposure to other specified factors, initial encounter; Y99.0 Civilian activity done for income or pay; F17.200 Nicotine dependence, unspecified, uncomplicated
CPT/HCPCS: 71046; 94640; 99282